=== PATIENT | male | born 2000 | race Hispanic/Latino ===

== ENCOUNTER 2021-02-03 15:22 | Outpatient (CLI) | payer OTHER | END 2021-02-03 15:23 | disposition home or self-care (01) | LOC: BICULT 15:22 | PROVIDERS: ATTEND Nurse Practitioner Family | DX: N50.819 Testicular pain, unspecified (principal); R10.2 Pelvic and perineal pain; R10.31 Right lower quadrant pain | CPT/HCPCS: 76999 ==